=== PATIENT | male | born 1950 | race Two or more races ===

== ENCOUNTER → 2020-01-20 | Outpatient (CLI) | payer MEDICARE, BC ==
--- NOTE | 2020-01-20 12:44 | Diagnostic Imaging Report ---
MRI BRAIN WO HISTORY: Ataxia COMPARISON: None. TECHNIQUE: Sagittal T2, axial T2, axial T1, axial T2/FLAIR, axial gradient echo (or susceptibility weighted), coronal T2/FLAIR, and axial diffusion weighted MR images of the brain were obtained without contrast. DISCUSSION: Scalp/bone marrow: Unremarkable. Brain sulci: Prominent. Ventricles: Compensatory dilatation. Extra-axial spaces: No masses or fluid collections. Parenchyma: Scattered T2/FLAIR hyperintense foci throughout the supratentorial white matter are likely chronic microvascular ischemic changes. Otherwise, no mass, hemorrhage, or acute vascular insults. Vessels: Normal flow voids in major arteries and veins. Sellar/Suprasellar region: No abnormalities. Craniocervical junction: No abnormalities. Incidental findings: Bilateral ocular lens replacement. T2 hyperintense left mastoid effusion. IMPRESSION: 1. No acute intracranial abnormalities. 2. Mild supratentorial chronic microvascular ischemic change. 3. Mild generalized cerebral volume loss. Signed by: Dr. Sherman Keith M.D. on 01/20/2020 12:41 PM
--- NOTE | 2020-01-20 13:23 | Diagnostic Imaging Report ---
EXAMINATION: SP LUMBAR, COMPLETE MIN 4VW, SACRUM X-RAY INDICATION: Spondylolisthesis COMPARISON: None FINDINGS: AP, lateral and oblique images of the lumbar spine and AP and lateral images of the sacrum were obtained. No acute fracture. Vertebral body heights are well-maintained. Alignment appears anatomic. Oblique images demonstrate no definite evidence of spondylosis. Mild multilevel degenerative changes of the visualized spine with disc space narrowing and small osteophyte formation. Atherosclerotic arterial calcifications. IMPRESSION: No acute osseous injury. Mild multilevel degenerative changes of the lumbar spine. Signed by: Issac Giordano MD on 01/20/2020 1:20 PM
== END ==
LOC: MRI 11:11
PROVIDERS: ATTEND Internal Medicine
DX: M47.816 Spondylosis without myelopathy or radiculopathy, lumbar region (principal); R27.0 Ataxia, unspecified
CPT/HCPCS: 70551; 72110; 72220

== ENCOUNTER → 2021-09-30 | Outpatient (CLI) | payer MEDICARE, BC | LOC: MRI 10:55 | PROVIDERS: ATTEND Internal Medicine | DX: M47.816 Spondylosis without myelopathy or radiculopathy, lumbar region (principal) | CPT/HCPCS: 72148 ==